=== PATIENT | female | born 1960 | race Two or more races ===

== ENCOUNTER 2018-11-06 11:52 | Emergency (ER) | payer OTHER ==
[~2018-11-06] VITALS: Ht 160 cm; Wt 94.3 kg
[2018-11-06] MEDS ORDERED: LOSA25TA27 PO (12:02)
--- NOTE | 2018-11-06 12:13 | NUR ---
RAMILA PIZANO AT BEDSIDE FOR MSE.
[2018-11-06] MEDS ORDERED: HYDROMORPHONE 1 MG/1 ML DISP.SYRIN ONE (12:25)
[2018-11-06] MEDS ORDERED: ONDANSETRON 4 MG/2 ML VIAL ONE (12:25)
[2018-11-06] MEDS ORDERED: HYDROMORPHONE 1 MG/1 ML DISP.SYRIN IM ONE (12:30)
[2018-11-06] MEDS ORDERED: ONDANSETRON 4 MG/2 ML VIAL IM ONE (12:30)
[2018-11-06 12:40] LABS: BASOPHILS % (AUTO) 0.6 % (0.0-2.0); EOSINOPHILS # (AUTO) 0.2 K/uL (0.0-0.7); EOSINOPHILS % (AUTO) 3.6 % (0.0-7.0); HEMATOCRIT 41.8 % (31.2-41.9); HEMOGLOBIN 13.9 g/dL (10.9-14.3); LYMPHOCYTES # (AUTO) 2.3 K/uL (20.0-40.0); LYMPHOCYTES % (AUTO) 35.9 % (20.5-51.5); MEAN CORPUSCULAR HGB CONC 33 g/dL (32.3-35.6); MEAN CORPUSCULAR VOLUME 87.1 fL (75.5-95.3); MONOCYTES # (AUTO) 0.4 K/uL (2.0-10.0); MONOCYTES % (AUTO) 5.5 % (0.0-11.0); NEUTROPHILS # (AUTO) 3.5 K/uL (1.8-8.9); NEUTROPHILS % (AUTO) 54.4 % (38.5-71.5); PLATELET COUNT (AUTO) 269 K/uL (179-408); WHITE BLOOD COUNT (AUTO) 6.5 K/uL (3.8-11.8)
[2018-11-06 12:53] LABS: BILIRUBIN,TOTAL 0.5 mg/dL (0.2-1.0); CREATININE 0.9 mg/dL (0.6-1.3); POTASSIUM 4.4 mmol/L (3.5-5.1); TOTAL PROTEIN, SERUM 7.4 g/dL (6.4-8.2)
[2018-11-06] MEDS ORDERED: MECLIZINE HCL 25 MG TABLET PO ONE (13:00)
[2018-11-06] MEDS ORDERED: MECLIZINE HCL 25 MG TABLET ONE (13:08)
--- NOTE | 2018-11-06 13:12 | NUR ---
PT TAKEN TO RADIOLOGY FOR CT SCAN.
--- NOTE | 2018-11-06 13:24 | NUR ---
PT BACK IN ER FROM RADIOLOGY.
--- NOTE | 2018-11-06 14:05 | NUR ---
Patient discharged to home in stable conditon. Written and verbal after care instructions given. Patient verbalizes understanding of instructions. ALL BELONGINGS W/ PT. PT ASSISTED OUT OF ER IN W/C PER REQUEST.
[2018-11-06 14:06] VITALS: BP 131/72
== END 2018-11-06 14:06 | disposition home or self-care (01) ==
LOC: ER 11:52
DX: H83.09 Labyrinthitis, unspecified ear (principal); M54.9 Dorsalgia, unspecified; I10 Essential (primary) hypertension; Z79.899 Other long term (current) drug therapy
CPT/HCPCS: 36415; 70450; 80053; 84484; 85025; 93005; 96372 ×2; 99284; J1170; J2405; 70030-TC; A4663; J8597